=== PATIENT | male | born 1980 | race Caucasian/White ===

== ENCOUNTER 2016-08-03 20:31 | Emergency (ER) | payer OTHER ==
[2016-08-03 20:33] VITALS: BMI 22.3
[2016-08-03 21:29] VITALS: BP 123/57; PULSE 59; TEMP 98.2
--- NOTE | 2016-08-04 00:06 | EDPRACDOC ---
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 Hx of surgery on left leg that gets recurrent cellulitis and swelling due to poor circulation. Denies cp, sob, cough. Has routine appt with surgeon Q 4 months and next appt in 2 weeks and pt has regular Rx for keflex but has run out. Med hx = none. Circumstances: Reports: Other (surgery to left leg) Severity: Reports: Mild Able to Bear Weight: Fully Associated Signs & Symptoms: Reports: Swelling Pain In: Reports: Leg (lower) ED Past Medical History - History Reviewed Yes Nurses notes reviewed and agree except as marked - Patient Medical History Psychological History: Denies: Depression Additional Past Medical History: CHRONIC LEG EDEMA - Social Medical History Smoking Status: Heavy tobacco smoker (5 or more cigarettes/day or daily pipe/ cigar) EDM Review of Systems - Review of Systems ROS Negative Except as Marked: Yes All systems reviewed and were negative except as marked Integumentary: Other (mild redness and swelling left lower leg) - Physical Exam Constitutional: No apparent distress, Alert Oriented to: Time, Person, Place Last recorded Vital Signs: Last Vital Signs Temp 98.2 F 08/03/16 21:26 Pulse 59 L 08/03/16 21:26 Resp 20 08/03/16 21:26 BP 123/57 L 08/03/16 21:26 Pulse Ox 99 08/03/16 21:26 Oxygen Pulse Oxygen Saturation 99 O2 Device Room Air Oxygen Flow Rate Fraction of Inspired Oxygen ( FIO2) - HEENT Head: Normal Eye Exam: negative: Conjunctival Injection, Scleral Icterus TMJ: Normal Nose: No Symptoms Reported Neck: Normal - Respiratory/Cardiovascular Respiratory: Normal - CTA Cardiovascular: Normal - GI Tenderness: Non tender - Musculoskeletal Back: Normal Extremities: Pedal Edema (left leg), Pedal Pulse, Radial Pulse Musculoskeletal Comment: pulses, sensation, motor fxn intact distal to swelling - Integumentary Skin: Normal, Rash - Neurologic Mood Description: Normal Thought: Coherent Perception: Normal Decision Time to Discharge: 00:21 - Departure Disposition: Home Condition: Stable Final Diagnosis: Rash and nonspecific skin eruption Edema Qualifiers: Edema type: localized Qualified Code(s): R60.0 - Localized edema Instructions: Acute Rash (ED), Leg Edema (ED) Education/Counseling Given To: Patient Education/Counseling Given Regarding: Diagnosis, Treatment, Prognosis, Follow Up Referrals: Shalonda Hill MD [Primary Care Provider] - One Week Prescriptions: New Cephalexin Monohydrate [Keflex] 500 mg PO Q6H #20 cap No Action Oxycodone HCl [Oxycodone Immediate Release] 10 mg PO Q6H Forms: Excuse Note Additional Instructions: Follow up with surgeon and primary care. Take benadryl for rash. Return to ED for any new or worsening symptoms.
== END 2016-08-04 00:38 | disposition home or self-care (01) ==
LOC: ED 20:31
DX: R23.8 Other skin changes (principal); R60.0 Localized edema
CPT/HCPCS: 99282